=== PATIENT | female | born 1940 | race Caucasian/White ===

== ENCOUNTER → 2016-05-06 | Outpatient (CLI) | payer OTHER ==
--- NOTE | 2016-05-06 10:23 | MR ---
MRI of the Lumbar Spine (Without Contrast) May 06, 2016 Indication: Numbness and pain. Sciatica. Technique: Sagittal and axial T1 and T2 , and sagittal STIR MR sequences of the lumbar spine witho ut contrast. Axial imaging from T12 through S1. Comparison: None. Findings: The lumbar spine is anatomically aligned. Reactive bone marrow edema is present in bilater al L4-L5 facets, worse right than left on the STIR weighted imaging. Minimal diskogenic Modic changes are present at the L2-L3 and T12 levels. Bone marrow signal is otherwise normal. No compression fra cture, pars defect, or bone marrow replacing lesion. The paraspinal soft tissues are normal. The aorta is normal caliber. The conus medullaris is at L1- L2. The spinal canal is capacious. Several round lesions in the right kidney are hyperintense on T2 and isointense to background renal p arenchyma on T1-weighted imaging. Normal left kidney. No hydronephrosis. T12-L1: Normal disk. Central canal and neural foramina are widely patent. L1-L2: Normal disk. Widely patent central canal and neural foramina. L2-L3: Minimal disk desiccation. No disk bulge or herniation. Central canal is widely patent. Mild fa cet hypertrophy and ligamentum flavum thickening. Widely patent bilateral neural foramina. L3-L4: Disk desiccation and minimal posterior lateral disk bulge results in no central canal or neura l foraminal narrowing. Mild facet hypertrophy and ligamentum flavum thickening. L4-L5: Disk desiccation and mild diffuse broad-based disk bulge result in minimal acquired central ca nal narrowing, minimal bilateral ventrolateral recess narrowing, and minimal bilateral neural foramin al stenosis. Facet hypertrophy is accompanied by ligamentum flavum thickening. L5-S1: Disk desiccation and diffuse broad-based disk bulge contribute to minimal central canal and mi nimal bilateral neural foraminal stenosis. Impression: 1. Widely patent central canal at all levels. No cord compression. 2. Mild diffuse disk bulges at L4-L5 and L5-S1 resulting in minimal central canal narrowing. No focal disk herniation. 3. Reactive facet arthropathy at L4-L5, worse on the right. 4. No compression fracture or pars defect. 5. Probable right renal cyst. Recommend follow up renal ultrasound to optimally characterize. A Follow-Up Required test result notification was sent via the [employer] service, 10:10:48 AM, 05/06/2016 , [employer] Message ID [id number].
== END ==
LOC: FIMAGING 08:30
PROVIDERS: ATTEND Internal Medicine
DX: M54.40 Lumbago with sciatica, unspecified side (principal)

== ENCOUNTER → 2016-05-31 | Outpatient (CLI) | payer OTHER ==
--- NOTE | 2016-05-31 10:05 | US ---
Abdomen Retroperitoneal Renal Ultrasound: Indications: Incomplete evaluation of probable cysts right kidney on prior MRI study. (R 93.8) Findings: No hydronephrosis, shadowing renal calculi, focal solid renal mass or perinephric fluid. There is a small 10 mm cyst lower pole right kidney as well as 10 mm cyst mid to upper right kidney. There is echogenic focus associated with small cyst mid to lower right kidney that could represent a small calcification along the margin. Right kidney: 9.2 x 3.6 x 3.9 cm. Cortical thickness 1 cm. Left kidney: 10 x 4 x 4 cm. Cortical thickness 1.2 cm. Urinary bladder is unremarkable. No wall thickening or mass. Normal bilateral ureteral jets are visua lized. Prevoid volume: 31 mL Postvoid residual: 15 mL Impression: 1. Incidental benign-appearing cysts right kidney. There is suspicion of a small punctate calcificati on along the wall of the cyst lower right kidney. 2. Normal-appearing left kidney. 3. Small post void residual.
== END ==
LOC: FIMAGING 07:28
PROVIDERS: ATTEND Internal Medicine
DX: N28.1 Cyst of kidney, acquired (principal); Q63.9 Congenital malformation of kidney, unspecified

== ENCOUNTER → 2017-04-29 | Outpatient (CLI) | payer OTHER | LOC: FIMAGING 11:52 | PROVIDERS: ATTEND Internal Medicine | DX: Z12.31 Encounter for screening mammogram for malignant neoplasm of breast (principal); Z85.3 Personal history of malignant neoplasm of breast; Z80.3 Family history of malignant neoplasm of breast | CPT/HCPCS: G0202 ==

== ENCOUNTER → 2017-05-12 | Outpatient (CLI) | payer OTHER | LOC: FIMAGING 07:46 | PROVIDERS: ATTEND Internal Medicine | DX: K22.5 Diverticulum of esophagus, acquired (principal); K44.9 Diaphragmatic hernia without obstruction or gangrene ==

== ENCOUNTER → 2017-05-27 | Outpatient (CLI) | payer OTHER | LOC: FIMAGING 08:39 | PROVIDERS: ATTEND Internal Medicine | DX: N20.0 Calculus of kidney (principal); N28.1 Cyst of kidney, acquired; M81.0 Age-related osteoporosis without current pathological fracture; R13.10 Dysphagia, unspecified ==

== ENCOUNTER → 2017-06-19 | Outpatient (CLI) | payer OTHER ==
[~2017-06-19] MED LIST: GADOBUTROL 10 ML VIAL IVP ONE
== END ==
LOC: FIMAGING 09:30
PROVIDERS: ATTEND Internal Medicine
DX: N28.1 Cyst of kidney, acquired (principal); K76.0 Fatty (change of) liver, not elsewhere classified
CPT/HCPCS: 74183; A9585

== ENCOUNTER → 2018-05-19 | Outpatient (CLI) | payer OTHER | LOC: FIMAGING 12:52 | PROVIDERS: ATTEND Internal Medicine | DX: Z12.31 Encounter for screening mammogram for malignant neoplasm of breast (principal); Z85.3 Personal history of malignant neoplasm of breast; Z80.3 Family history of malignant neoplasm of breast ==

== ENCOUNTER → 2018-06-12 | Outpatient (CLI) | payer OTHER | LOC: FIMAGING 08:22 | PROVIDERS: ATTEND Internal Medicine | DX: R92.8 Other abnormal and inconclusive findings on diagnostic imaging of breast (principal); Z85.3 Personal history of malignant neoplasm of breast ==

== ENCOUNTER → 2018-06-26 | Outpatient (CLI) | payer OTHER | LOC: FIMAGING 08:03 | PROVIDERS: ATTEND Internal Medicine | DX: R92.8 Other abnormal and inconclusive findings on diagnostic imaging of breast (principal); Z85.3 Personal history of malignant neoplasm of breast; N63.21 Unspecified lump in the left breast, upper outer quadrant | CPT/HCPCS: A9585; C8908; 82565-PO ==

== ENCOUNTER → 2018-07-27 | Day surgery (SDC) | payer OTHER ==
[~2018-07-27] MED LIST changes: +BUPIVACAINE 0.5% 30 ML SDV ONE; -GADOBUTROL 10 ML VIAL IVP ONE; +LIDOCAINE 1% 300 MG/30 ML SDV ONE
== END | disposition home or self-care (01) ==
LOC: FIMAGING 07:19
PROVIDERS: ATTEND Internal Medicine Hematology & Oncology
PROC: 0HBU3ZX Excision of Left Breast, Percutaneous Approach, Diagnostic (ICD-10-PCS; principal; 2018-07-27)
DX: C50.412 Malignant neoplasm of upper-outer quadrant of left female breast (principal); Z85.3 Personal history of malignant neoplasm of breast; Z80.3 Family history of malignant neoplasm of breast

== ENCOUNTER → 2018-08-10 | Outpatient (CLI) | payer OTHER | LOC: FIMAGING 11:32 | PROVIDERS: ATTEND Internal Medicine Hematology & Oncology | DX: R07.9 Chest pain, unspecified (principal); C50.919 Malignant neoplasm of unspecified site of unspecified female breast; Z98.890 Other specified postprocedural states ==

== ENCOUNTER 2018-09-23 06:36 | Observation (INO) | payer OTHER ==
[2018-09-23] MEDS ORDERED: LR 1,000 ML IV ONE (06:43)
[2018-09-23] MEDS ORDERED: ceFAZolin 2 GM/DEXTROSE 100 ML IV ONE (06:43)
[2018-09-23] MEDS ORDERED: BUPIVACAINE 0.5% 30 ML SDV ONE (08:04)
[2018-09-23] MEDS ORDERED: THROMBIN (BOVINE) 20,000 UNIT VIAL TP ONE (08:11)
--- NOTE | 2018-09-23 08:15 | GHP ---
[f rep st] HISTORY AND PHYSICAL DATE OF ADMISSION: 09/23/2018 CHIEF COMPLAINT: Breast cancer. HISTORY OF PRESENT ILLNESS: A 78-year-old woman with recurrent left breast cancer. 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 She has had left breast yamila n for a number of years. On June 26, 2018, she had a bilateral breast MRI that showed a 12 mm sp iculated enhancing mass at the lumpectomy site lateral left breast 3 o'clock position. This was also found on her mammogram. She underwent an ultrasound-guided biopsy in July, which showed infiltrati ng ductal carcinoma. PAST MEDICAL HISTORY: Anxiety, hearing loss, myasthenia gravis. PAST SURGICAL HISTORY: Lumpectomy, tonsillectomy, tubal ligation. MEDICATIONS: Reviewed. ALLERGIES: Adhesives, hormones, steroids, iodine, Keflex, Novocain, prednisone, strawberries, sulfa, tetracycline. FAMILY HISTORY: Significant for breast cancer. SOCIAL HISTORY: She is a former smoker. REVIEW OF SYSTEMS: No fevers or chills. PHYSICAL EXAMINATION: GENERAL: Pleasant, well-nourished, well-groomed woman. HEENT: Normocephalic , some hearing deficits. Mucous membranes moist. Pupils equal and round. No scleral icterus. LUNG S: Clear to auscultation bilaterally. No increased work of breathing. CARDIAC: Regular rate. SALVADOR ASTS: Exam performed on July 20, with evidence of biopsy site changes. IMPRESSION AND PLAN: A 78-year-old with recurrent breast cancer, T1c N0, ER/[place] positive. We will pr oceed with mastectomy and sentinel lymph node. Risks and benefits were reviewed. /[id number]/MODL
[2018-09-23] MEDS ORDERED: ONDANSETRON 4 MG/2 ML VIAL ONE (08:49)
[2018-09-23] MEDS ORDERED: ROCURONIUM 50 MG/5 ML VIAL ONE (08:49)
[2018-09-23] MEDS ORDERED: DEXAMETHASONE 4 MG/ML VIAL ONE (08:49)
[2018-09-23] MEDS ORDERED: PROPOFOL 200 MG/20 ML VIAL ONE ×2 (08:49)
[2018-09-23] MEDS ORDERED: LIDOCAINE 2% 5 ML SDV ONE (08:49)
[2018-09-23] MEDS ORDERED: fentaNYL 100 MCG/2 ML INJ ONE ×2 (08:49→10:39)
[2018-09-23] MEDS ORDERED: ceFAZolin 1 GM VIAL ONE ×2 (10:19)
[2018-09-23] MEDS ORDERED: METOCLOPRAMIDE 10 MG/2 ML VIAL ONE (10:47)
[2018-09-23] MEDS ORDERED: ACETAMINOPHEN 500 MG TAB PO PRN (10:59)
[2018-09-23] MEDS ORDERED: METOCLOPRAMIDE 10 MG/2 ML VIAL IVP PRN (10:59)
[2018-09-23] MEDS ORDERED: PHENYLEPHRINE HCL 100 MCG/ML SYR IVP PRN (10:59)
[2018-09-23] MEDS ORDERED: NALOXONE HCL 0.4 MG/ML INJ IVP PRN (10:59)
[2018-09-23] MEDS ORDERED: LR 500 ML IV PRN (10:59)
[2018-09-23] MEDS ORDERED: ALBUTEROL 3 ML DEYVIAL IH PRN (10:59)
[2018-09-23] MEDS ORDERED: ONDANSETRON 4 MG/2 ML VIAL IVP PRN (10:59)
[2018-09-23] MEDS ORDERED: NS 500 ML IV PRN (10:59)
[2018-09-23] MEDS ORDERED: HYDROmorphONE/DILAUDID 1 MG/ML INJ IVP PRN (10:59)
[2018-09-23] MEDS ORDERED: PROMETHAZINE HCL 25 MG/ML INJ IVP PRN (10:59)
[2018-09-23] MEDS ORDERED: HYDROCODONE/APAP 5/325 TAB PO PRN (10:59)
[2018-09-23] MEDS ORDERED: fentaNYL 100 MCG/2 ML INJ IVP PRN (10:59)
--- NOTE | 2018-09-23 10:59 | PDANEPAE ---
ANE Past Medical History - Cardiovascular History Hx Hypertension: No Hx Arrhythmias: No Hx Chest Pain: No Hx Coronary Artery / Peripheral Vascular Disease: No Hx CHF / Valvular Disease: No Hx Palpitations: No Cardiovascular History Comment: hypercholesterolemia - Pulmonary History Hx COPD: No Hx Asthma/Reactive Airway Disease: No Hx Recent Upper Respiratory Infection: No Hx Oxygen in Use at Home: No Hx Sleep Apnea: No Sleep Apnea Screening Result - Last Documented: Negative - Neurologic History Hx Cerebrovascular Accident: No Hx Seizures: No Hx Dementia: No Neurologic History Comment: myasthenia gravis. hx of vertigo - Endocrine History Hx Diabetes: No Endocrine History Comment: hypothyroidism - Renal History Hx Renal Disorders: No - Liver History Hx Hepatic Disorders: No - Neurological & Psychiatric Hx Hx Neurological and Psychiatric Disorders: No - Cancer History Hx Cancer: Yes Cancer History Comment: breast cancer - Congenital Disorder History Hx Congenital Disorders: No - GI History Hx Gastrointestinal Disorders: Yes Gastrointestinal History Comment: reflux. hiatal hernia - Other Health History Other Health History: wears reading glasses. partial lower plate. wears retainer at night to prevent her from grinding her jaw. 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 lumpectomy. breast biopsy. tubal ligation. deviated septum repair ANE Review of Systems Review of Systems: - Exercise capacity METS (RN): 4 METS ANE Patient History - Allergies Allergies/Adverse Reactions: iodine [Iodine] Allergy (Unknown, Verified 09/15/18 12:49) Sulfa (Sulfonamide Antibiotics) Allergy (Verified 09/15/18 12:50) "makes my heart beat faster" avoid meds affecting myasthenia Allergy (Uncoded 09/15/18 12:49) steriods Allergy (Uncoded 09/15/18 12:50) "messes up my head" - Home Medications Home Medications: Atorvastatin Calcium [Lipitor] HS 10/02/14 [Last Taken 09/22/18] Levothyroxine [Synthroid] DAILY06 10/02/14 [Last Taken 09/23/18] Pyridostigmine [place] PRN 09/15/18 [Last Taken 1 Month Ago ~08/24/18] - NPO status NPO Since - Liquids (Date): 09/23/18 NPO Since - Liquids (Time): 03:00 NPO Since - Solids (Date): 09/22/18 NPO Since - Solids (Time): 17:00 - Smoking Hx Smoking Status: Former smoker - Family Anes Hx Family Hx Anesthesia Complications: none ANE Labs/Vital Signs - Vital Signs Blood Pressure: 141/65 Heart Rate: 65 Respiratory Rate: 17 O2 Sat (%): 96 Height: 160.02 cm Weight: 54.431 kg ANE Physical Exam - Airway Neck exam: FROM Mallampati Score: Class 2 Mouth exam: normal dental/mouth exam, dentures - Pulmonary Pulmonary: no respiratory distress, no rales or rhonchi, clear to auscultation - Cardiovascular Cardiovascular: regular rate and rhythym, no murmur, rub, or gallop - ASA Status ASA Status: III ANE Anesthesia Plan Anesthesia Plan: general endotracheal anesthesia (No paralytic)
--- NOTE | 2018-09-23 10:59 | POSTANESTH ---
Post Anesthetic Evaluation Cardiovascular Status: Normal, Stable Respiratory Status: Normal, Stable Level of Consciousness/Mental Status: Can Participate in Eval Pain Control: Adequate, Prn Tx Ordered Nausea/Vomiting Control: Adequate, Prn Tx Ordered Complications Possibly Related to Anesthesia: None Noted
--- NOTE | 2018-09-23 11:03 | POSTOPPROG ---
Post Op Note Date of Operation: 09/23/18 Surgeon: Pili Bean Anesthesiologist: shani Anesthesia: GET(General Endotracheal) Pre-op Diagnosis: L breast cancer Post-op Diagnosis: same Indication: 78 yo with left breast cancer history of L breast DCIS Procedure: L mast L sln Findings: no unusual Inf/Abcess present in the surg proc area at time of surgery?: No EBL: Minimal Specimen(s): mast sln
[2018-09-23] MEDS ORDERED: ACETAMINOPHEN 325 MG TAB ONE (11:49)
[2018-09-23] MEDS: ACETAMINOPHEN 325 MG TAB PO PRN (11:49)
[2018-09-24] MEDS: ACETAMINOPHEN 325 MG TAB PO PRN ×2 (00:28→08:50)
[2018-09-24] MEDS ORDERED: PYRIDOSTIGMINE BROMIDE 60 MG TAB PO PRN (07:25)
[2018-09-24] MEDS ORDERED: LEVOTHYROXINE 100 MCG TAB PO SCH (07:30)
[2018-09-24] MEDS ORDERED: CARBOXYMETHYLCELLULOSE 1% 0.4 ML DROPERETTE EACHEYE PRN (07:34)
[2018-09-24 07:55] VITALS: BP 112/57
--- NOTE | 2018-09-24 08:46 | SOAPPROG ---
SOAP Progress Note Assessment/Plan: Assessment: POD #1 s/p l mastectomy L sln Doing well can dc home S Pain controlled with tylenol O: CTAB RRR Dressing cdi ZHEN with serosang fluid Plan: 09/24/18 08:45 Objective: Vital Signs Temp Pulse Resp BP Pulse Ox 36.7 C 76 18 112/57 L 96 09/24/18 07:54 09/24/18 07:54 09/24/18 07:54 09/24/18 07:54 09/24/18 07:54 09/23/18 09/24/18 09/25/18 05:59 05:59 05:59 Intake Total 1470 Output Total 105 Balance 1365 ICD10 Worksheet Patient Problems: Problems Problem Status Onset Breast cancer Acute - ICD10 Problem Qualifiers (1) Breast cancer
[2018-09-24] MEDS ORDERED: MAGNESIUM HYDROXIDE 30 ML UDCUP PO PRN (08:47)
[2018-09-24] MEDS ORDERED: LACTULOSE 20 GM/30 ML UDCUP PO PRN (08:47)
[2018-09-24] MEDS ORDERED: BISACODYL 10 MG SUPP PR PRN (08:47)
[2018-09-24] MEDS ORDERED: POLYETHYLENE GLYCOL 3350 17 GM PKT PO PRN (08:47)
[2018-09-24] MEDS ORDERED: TRIAMCINOLONE 0.1% 15 GM CRTUBE TP PRN (09:00)
[2018-09-24] MEDS ORDERED: SENNOSIDES/DOCUSATE SODIUM TAB PO SCH (09:00)
--- NOTE | 2018-09-24 11:01 | ASMTDCNOTE ---
Case Management Discharge Discharge Order Complete? Answers: Yes Patient to Obtain Answers: via Family Medications Transportation Arranged Answers: Family/Friends Discharge Comments Notes: Pt is a 78 yo F who underwent a Mastectomy. Pt cleared by therapies to be discharged independently. Has family who is able to prepare meals and help with outpatient follow-up and transportation. Pt is linked with Nurse Navigator who can support after discharge. No other CM needs identified. Dc independent. Date Signed: 09/24/2018 11:00 AM Electronically Signed By:JESENIA Pedersen
--- NOTE | 2018-09-24 11:02 | ASMTLACE ---
LACE Length of stay for Answers: 1 day current admission Acuity / Level of Answers: No Care: Did the patient have an inpatient admission? Comorbidities - select Answers: Any tumor (including all that apply lymphoma or leukemia) Opioid dependence / Chronic pain # of Emergency department Answers: 0 visits in the last 6 months Social determinants Answers: Mental health diagnosis (anxiety, depression, pers onality disorders, etc.) Score: 10 Date Signed: 09/24/2018 11:01 AM Electronically Signed By:JESENIA Pedersen
--- NOTE | 2018-09-24 11:07 | ASDISCHSUM ---
Discharge Information Plan Status:Home with No Needs Medically Cleared to Leave:09/24/2018 Discharge Date:09/24/2018 10:55 AM CM D/C Disposition:Home, Routine, Self-Care ADT D/C Disposition:Home, Routine, Self-Care Projected Discharge Date:09/24/2018 10:55 AM Transportation at D/C: Discharge Delay Reason: Follow-Up Date:09/24/2018 10:55 AM Discharge Slot: Final Diagnosis: Placement Information Patient Contact Information Contact Name:SAMREEN Relationship:Daughter Address:[address] [place] [address] City:[place] Alternate Phone: State/Zip Code:[place] [address] Email: Financial Information Financial Class:Medicare Primary Plan Desc:MEDICARE OUTPATIENT Primary Plan Number:[id number] Secondary Plan Desc:[facility] Secondary Plan Number:[id number] Assessment Information LACE LACE Length of stay for Answers: 1 day current admission Acuity / Level of Answers: No Care: Did the patient have an inpatient admission? Comorbidities - select Answers: Any tumor (including all that apply lymphoma or leukemia) Opioid dependence / Chronic pain # of Emergency department Answers: 0 visits in the last 6 months Social determinants Answers: Mental health diagnosis (anxiety, depression, pers onality disorders, etc.) Score: 10 Date Signed: 09/24/2018 11:01 AM Electronically Signed By:JESENIA Pedersen Case Management Discharge Plan Note Case Management Discharge Discharge Order Complete? Answers: Yes Patient to Obtain Answers: via Family Medications Transportation Arranged Answers: Family/Friends Discharge Comments Notes: Pt is a 78 yo F who underwent a Mastectomy. Pt cleared by therapies to be discharged independently. Has family who is able to prepare meals and help with outpatient follow-up and transportation. Pt is linked with Nurse Navigator who can support after discharge. No other CM needs identified. Dc independent. Date Signed: 09/24/2018 11:00 AM Electronically Signed By:JESENIA Pedersen Intervention Information
[2018-09-24] MEDS ORDERED: ATORVASTATIN CALCIUM 20 MG TAB PO SCH (21:00)
== END 2018-09-24 10:55 | disposition home or self-care (01) ==
LOC: FSGY 06:36 → F3E 09:47 → F1N 12:14
PROVIDERS: ADMIT Surgery; ATTEND Surgery
DX: C50.412 Malignant neoplasm of upper-outer quadrant of left female breast (principal); Z85.3 Personal history of malignant neoplasm of breast; Z80.3 Family history of malignant neoplasm of breast; Z17.0 Estrogen receptor positive status [ER+]; G70.00 Myasthenia gravis without (acute) exacerbation; K21.9 Gastro-esophageal reflux disease without esophagitis; K44.9 Diaphragmatic hernia without obstruction or gangrene; E78.00 Pure hypercholesterolemia, unspecified; E03.9 Hypothyroidism, unspecified; F41.9 Anxiety disorder, unspecified; H91.93 Unspecified hearing loss, bilateral; Z87.891 Personal history of nicotine dependence
CPT/HCPCS: 19303; 38525; 78195; 97165; A9520; J0690; J1100; J2405; J2704; J2765; J3010